=== PATIENT | female | born 1965 | race Caucasian/White ===

== ENCOUNTER 2017-03-31 12:36 | Day surgery (SDC) | payer OTHER ==
[~2017-03-31] VITALS: Ht 170.2 cm; Wt 120.6 kg
[~2017-03-31 12:36] MED LIST: VALS320T11 PO; [UNRECOGNIZED DRUG - CODE] PO
[2017-03-31 14:22] VITALS: Ht 170.2 cm; Wt 120.6 kg
[2017-03-31] MEDS ORDERED: CLARITIN PO (14:37)
[2017-03-31] MEDS ORDERED: ALPR0.5T PO (14:37)
[2017-03-31] MEDS ORDERED: ALBUTEROL INH (14:37)
[2017-03-31] MEDS ORDERED: RANI150T9 PO (14:37)
[2017-03-31 16:41] VITALS: BP 156/88; PULSE 69; RESP 14
[2017-03-31] MEDS ORDERED: LIDOCAINE 2% (SDV) 5 ML INJ ONE (16:51)
[2017-03-31] MEDS ORDERED: PROPOFOL 40 ML ONE (16:51)
[2017-03-31] MEDS ORDERED: PROPOFOL 20 ML ONE (17:05)
[2017-03-31 17:49] VITALS: BP 107/54; RESP 20
--- NOTE | 2017-04-02 15:58 | GILP ---
DATE OF PROCEDURE: 03/31/2017 NAME OF PROCEDURE: Colonoscopy with saline assisted polypectomy and localization tattoo. SURGEON: Reilly Aaron MD. HISTORY AND INDICATIONS: There is a multitude of anal warts in the perianal area. PREMEDICATION: Monitored anesthesia care by anesthesiologist. INSTRUMENT USED: Olympus colonoscope. PREPARATION: Adequate. TECHNIQUE: After informed consent, with the patient/relatives understanding the procedure, its indic ations potential risks and complications, including but not limited to: allergic reaction, bleeding, perforation, infection, missed lesions and after all pertinent questions were answered to the patie nt's satisfaction, the patient/relatives signed the witnessed informed consent. Following this, premedication was administered slowly IV push by under careful cardiovascular and re spiratory monitoring with pulse oximetry, automatic blood pressure and sea foam kiss maker. Once the sedativ e effect was achieved, the patient was placed in the left lateral decubitus position, digital rectal examination was performed. The colonoscope was then introduced and advanced under visual control th roughout all segments of the colon including: the rectum, sigmoid, descending colon, splenic flexure , transverse colon, hepatic flexure, ascending colon and finally reaching the cecum which was clearl y identified by transillumination, finger indentation and the ileocecal valve. Careful examination o f the mucosa of the lower gastrointestinal tract both on insertion as well as withdrawal of the inst rument disclosed the following findings: Rectal Examination: No evidence of perirectal disease, no masses. Colonic Mucosa: The colonic mucosa is remarkable for the presence of 12 mm sessile polyp in the sig moid colon. There is mild diverticulosis in the left side of the colon as well. The ileocecal valve was clearly identified and appears unremarkable. The instrument was withdrawn. On withdrawal of the instrument, no additional abnormalities are noted. Once we reached the sigmoi d colon the polyp was again identified. The polyp was removed with saline assisted polypectomy and the area was tattooed for localization. Moderate sized internal hemorrhoids are present. IMPRESSION: 1. Multiple anal warts. 2. A 12 mm sessile polyp, sigmoid colon, post-saline assisted polypectomy and localization tattoo. 3. Diverticulosis, left side of colon, mild. 4. Moderate sized internal hemorrhoids. PLAN: The patient will follow up as an outpatient. Pathology will be reviewed as soon as available . Given the sessile nature of the polyps, early reevaluation in 6 to 12 months is recommended pendi ng review of pathology. Dictated By: REILLY AARON MS/YOVANI Conf#: [id number] DID#: [id number] CC: REILLY AARON;*EndCC*
--- NOTE | 2017-04-02 16:03 | GILP ---
DATE OF PROCEDURE: 03/31/2017 PROCEDURE: Esophagogastroduodenoscopy with biopsies. BRIEF HISTORY AND INDICATIONS: The patient is being evaluated for dysphagia and abdominal pain. PREMEDICATION: Monitored anesthesia care by anesthesiologist. SURGEON: Reilly Aaron MD INSTRUMENT USED: Olympus panendoscope. TECHNIQUE: After informed consent, with the patient/relatives understanding the procedure, its indic ations, potential risks and complications, including but not limited to: allergic reaction, bleeding , perforation or infection, and after all pertinent questions were answered to the patients satisfac tion, the patient/relatives signed witnessed informed consent. Following this, premedication was administered slowly IV push under careful cardiovascular and respi ratory monitoring with pulse oximetry, automatic blood pressure and teletypesetter monitor. Once the sedative effect was achieved the patient was place in the left lateral decubitus, the panen doscope was introduced and advanced under visual control. Careful examination of the upper gastrointestinal tract, both on insertion as well as withdrawal of the instrument disclosed the following findings: ESOPHAGUS: The esophagus appears essentially unremarkable. Biopsies were obtained to rule out eosi nophilic esophagitis given the patient's complaints of dysphagia. STOMACH: Upon entrance to the stomach, air was insufflated, the gastric guidry distended normally. There is erythema and edema of the mucosa of a moderate degree. Superficial erosions are also prese nt. Biopsies were obtained to rule out H. pylori infection. PYLORUS: The pylorus appears patent and within normal limits, with no evidence of gastric outlet ob struction. DUODENUM: The duodenal mucosa was carefully examined in the duodenal bulb as well as the second por tion of the duodenum and appears unremarkable with no evidence of duodenitis, ulcer or neoplasm. The instrument was then withdrawn, the patient tolerated the procedure well and was transfer out of the endoscopy suite awake, and in good condition to continue recovery under observation IMPRESSION: 1. Rule out eosinophilic esophagitis, biopsies obtained. 2. Erosive gastritis, rule out Helicobacter pylori infection, biopsies obtained. PLAN: The patient will be treated with PPIs. Pathology will be reviewed as soon as available. Fur ther recommendations will depend on the patient's clinical course as well as review of biopsies. Dictated By: REILLY AARON MS/YOVANI Conf#: [id number] DID#: [id number]
== END 2017-03-31 20:00 | disposition home or self-care (01) ==
LOC: GIL 12:36
PROVIDERS: ATTEND Internal Medicine Gastroenterology
DX: K29.60 Other gastritis without bleeding (principal); B07.8 Other viral warts; D12.5 Benign neoplasm of sigmoid colon; K57.90 Diverticulosis of intestine, part unspecified, without perforation or abscess without bleeding; K64.8 Other hemorrhoids; I10 Essential (primary) hypertension; E11.9 Type 2 diabetes mellitus without complications; E78.5 Hyperlipidemia, unspecified; J44.9 Chronic obstructive pulmonary disease, unspecified; E66.01 Morbid (severe) obesity due to excess calories; Z68.41 Body mass index [BMI] 40.0-44.9, adult
CPT/HCPCS: 43239; 45380; 82962; 88305; 88312; Z7610